=== PATIENT | male | born 1945 | race Caucasian/White ===

== ENCOUNTER → 2016-12-09 | Outpatient (REF) | payer MEDICARE, OTHER | LOC: CANPREREF → M SFHCLACO 07:41 | PROVIDERS: ATTEND Physician Assistant | DX: I10 Essential (primary) hypertension (principal); E11.9 Type 2 diabetes mellitus without complications; E78.2 Mixed hyperlipidemia; Z53.8 Procedure and treatment not carried out for other reasons ==

== ENCOUNTER → 2018-02-04 | Outpatient (REF) | payer OTHER | LOC: M SFHCLACO 09:24 | DX: Z11.59 Encounter for screening for other viral diseases (principal) ==